=== PATIENT | male | born 1970 | race Caucasian/White ===

== ENCOUNTER 2021-01-23 09:35 | Emergency (ER) | payer OTHER, SELFPAY ==
[2021-01-23 09:42] VITALS: BP 151/87; PULSE 87; RESP 18; TEMP 36.1; O2SAT 99
--- NOTE | 2021-01-23 09:50 | ED.EYEPROB ---
HPI - Eye Problem General Chief complaint: Eye Problems Stated complaint: right eye Time Seen by Provider: 01/23/21 09:50 Source: patient and RN notes reviewed History of Present Illness HPI Narrative: Patient is a 50-year-old male who presents the urgent care with complaints of right eye redness and swelling. Patient states that he called [facility] yesterday and was given tobramycin drops and erythromycin. Patient states that he has been using it as directed since 3 PM yesterday without improvement. Patient states that the swelling and irritation started approximately 1 week ago. Denies of any known trauma or injury. Denies of any vision changes or headaches. No other acute complaints. No acute distress noted. Patient aware of the plan of care. Some parts of this dictation were generated by voice recognition software and may contain typographical and/or grammatical inaccuracies. Related Data Home Medications Medication Instructions Recorded Confirmed erythromycin 1 ea TOPICAL QID 01/23/21 01/23/21 tobramycin 1 drp RIGHT EYE QID 01/23/21 01/23/21 Allergies Allergy/AdvReac Type Severity Reaction Status Date / Time No Known Allergies Allergy Verified 01/23/21 09:51 Review of Systems Review of Systems: Narrative: CONSTITUTIONAL: Denies fever, chills, or sweats. EYES: Denies visual changes, redness, or discharge. ENT: Denies rhinorrhea, congestion, sore throat, or otalgia. CARDIOVASCULAR: Denies chest pain, palpitations, or edema. RESPIRATORY: Denies cough or dyspnea. GASTROINTESTINAL: Denies abdominal pain, nausea, vomiting, or diarrhea. GENITOURINARY: Denies dysuria or hematuria. SKIN: Denies rash or itching. MUSCULOSKELETAL: Denies back pain, joint pain, or myalgia. NEUROLOGIC: Denies headache, numbness, or weakness. All other systems reviewed are negative, except as documented in HPI. [facility] Family History Family History (Updated 03/05/13 @ 13:39 by DOCTOR UNKNOWN) Grandparent Diabetes mellitus Other Hypertension Social History Social History Smoking status: Smoker, status unknown Alcohol intake: current Comments At the time of my signature, I reviewed and agree with the nursing past medical, surgical, social, and family history. There is no relevant family history pertinent to the patient complaint. Exam Narrative: Exam Narrative: GENERAL: This is a well-nourished, well-developed patient, in no apparent distress. HEAD: normocephalic, atraumatic. EYES: PERRL. Sclera clear/white. Vision is grossly intact. Moderate erythema and edema surrounding the right eye with scant drainage to the upper right eyelid. Moderate injected right eye conjunctivitis. Pinpoint subconjunctival hematoma to the lateral aspect of the right eye EARS: External ears normal NOSE: External nose normal with no obvious nasal discharge, nares without redness, no rhinorrhea. THROAT: Mucous membranes moist NECK: Neck supple SKIN: warm, intact with no suspicious lesions or rash, good texture and turgor. NEURO: awake, alert, and oriented to person, place and time. There were no obvious focal neurologic abnormalities. EXTREMITIES: No clubbing, cyanosis, or edema. Course Vital Signs Vital signs: Vital Signs Temperature 97 F L 01/23/21 09:42 Pulse Rate 87 01/23/21 09:42 Respiratory Rate 18 01/23/21 09:42 Blood Pressure 151/87 H 01/23/21 09:42 Pulse Oximetry 99 01/23/21 09:42 Temperature 97 F L 01/23/21 09:42 Pulse Rate 87 01/23/21 09:42 Respiratory Rate 18 01/23/21 09:42 Blood Pressure 151/87 H 01/23/21 09:42 Pulse Oximetry 99 01/23/21 09:42 Reviewed?patient is informed that they may have pre-hypertension or hypertension based on a blood pressure reading in the department. I recommend the patient call the primary care provider listed on their discharge instructions or a physician of their choice this week to arrange follow-up for further evaluation of possible pre-hypertension or hypertension
== END 2021-01-23 10:05 | disposition home or self-care (01) ==
PROVIDERS: Emergency Provider Nurse Practitioner Family
DX: L03.213 Periorbital cellulitis (principal)
CPT/HCPCS: 99203; G0463

== ENCOUNTER → 2023-12-16 15:27 | Outpatient (CLI) | payer OTHER, SELFPAY ==
--- NOTE | ~2023-12-16 | MR_ITS ---
EXAMINATION: MR knee RT wo con DATE: 12/16/2023 16:00 INDICATION: Right knee pain. TECHNIQUE: Magnetic resonance imaging (MRI) of the right knee was performed without intravenous contr ast. Sequences included axial PD-weighted FS FSE, coronal PD-weighted FSE and PD-weighted FS FSE, sag ittal PD-weighted FSE, and sagittal T2-weighted FS FSE. COMPARISON: None. FINDINGS: Medial compartment: There is a complex tear involving body and posterior horn of medial meniscus. There is partial-thickn ess cartilage loss of tibial condyle, deep at the anterior and medial articular surface where there i s mild subchondral edema-like marrow signal intensity. There is partial-thickness cartilage loss of f emoral condyle, deep at the central and medial articular surface. There is full-thickness cartilage l oss of the posterior articular surface of femoral condyle with mild subchondral edema-like marrow sig nal intensity. Lateral compartment: Lateral meniscus is normal. Tibial cartilage is normal. At the posterior articular surface of femoral condyle, there is full-thickness cartilage fissuring with cartilage undermining and mild subchondral edema-like marrow signal intensity. Patellofemoral compartment: There is deep partial thickness cartilage loss of patellar median ridge and shallow partial-thickness cartilage loss of patellar medial and lateral facets. Trochlear cartilage is normal. Ligaments and tendons: Anterior and posterior cruciate ligaments are normal. There are changes of prior sprains of medial co llateral ligament and fibular collateral ligament characterized by increased signal intensity proxima lly. There is mild patellar tendinopathy. Fluid: There is a large knee joint effusion. There is trace fluid in a Hanley's cyst. There is moderate prepa tellar and superficial infrapatellar bursitis. IMPRESSION: 1. 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 2. Complex tear of medial meniscus. 3. Large knee joint effusion. Reviewed, dictated and finalized at location E. [employer] PROGRAM DIRECTOR IMPRESSION: 1. 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 2. Complex tear of medial meniscus. 3. Large knee joint effusion.
== END ==
PROVIDERS: PCP Orthopaedic Surgery; Visit Provider Orthopaedic Surgery
DX: M94.261 Chondromalacia, right knee (principal); S83.231A Complex tear of medial meniscus, current injury, right knee, initial encounter; M25.461 Effusion, right knee; X58.XXXA Exposure to other specified factors, initial encounter
CPT/HCPCS: 73721